=== PATIENT | female | born 1995 | race Caucasian/White ===

== ENCOUNTER 2018-10-31 00:07 | Emergency (ER) | payer BC ==
[2018-10-31] MEDS ORDERED: NS 0.9% 1000 ML** 1,000 ML IV ONE (00:18)
[2018-10-31] MEDS ORDERED: Metoclopramide IV* 5 MG/ML 2 ML VIAL IV SLOW PU ONE (00:18)
--- NOTE | 2018-10-31 00:22 | ED ---
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 The patient was found at a bar passed out. Symptoms aggravated by nothing. Symptoms alleviated by nothing. EMS reports vomiting [employer] INSPECTOR and low temp. - History Of Current Complaint Stated Complaint: "ETOH" PER EMS Time Seen by Provider: 10/31/18 00:09 Hx Obtained From: EMS Hx From Patient Unobtainable Due To: Other - LEVEL 5 CAVEAT DUE TO PATIENT BEING UNCONSCIOUS Onset/Duration of Drug/ETOH Abuse: Minutes - [employer] Ingestion History: Type/Name Of Drug - alcohol Overdose Characteristics: Oral Timing Of Abuse: Binge Use Aggravating Factor(s): Nothing Alleviating Factor(s): Nothing Associated Signs And Symptoms: Vomiting, Other: - low temp PMH/Surg Hx/FS Hx/Imm Hx Previously Healthy: No - LEVEL 5 CAVEAT DUE TO PATIENT BEING UNCONSCIOUS Infectious Disease History: Unable to Obtain/Confirm Infectious Disease History: Denies: Traveled Outside the [place] in Last 30 Days - Family History Known Family History: Positive: Unknown - LEVEL 5 CAVEAT DUE TO PATIENT BEING UNCONSCIOUS - Social History Alcohol Use: None - LEVEL 5 CAVEAT DUE TO PATIENT BEING UNCONSCIOUS Hx Substance Use: No - LEVEL 5 CAVEAT DUE TO PATIENT BEING UNCONSCIOUS Smoking Status (MU): Unknown if Ever Smoked - LEVEL 5 CAVEAT DUE TO PATIENT BEING UNCONSCIOUS Review of Systems Positive: Other - alcohol intoxication and low temp Positive: Vomiting Neurological: Other - LOC All Other Systems Reviewed And Are Negative: Yes Physical Exam - Summary Physical Exam Summary: VITAL SIGNS: Reviewed. GENERAL: Patient is a well-developed and nourished FEMALE who is lying comfortable in the stretcher. Patient is not in any acute respiratory distress. HEAD AND FACE: No signs of trauma. No ecchymosis, hematomas or skull depressions. No sinus tenderness. EYES: PERRLA, EOMI x 2, No injected conjunctiva, no nystagmus. EARS: Hearing grossly intact. Ear canals and tympanic membranes are within normal limits. MOUTH: Oropharynx within normal limits. NECK: Supple, trachea is midline, no adenopathy, no JVD, no carotid bruit, no c- spine tenderness, neck with full ROM. CHEST: Symmetric, no tenderness at palpation LUNGS: Clear to auscultation bilaterally. No wheezing or crackles. CVS: Regular rate and rhythm, S1 and S2 present, no murmurs or gallops appreciated. ABDOMEN: Soft, non-tender. No signs of distention. No rebound no guarding, and no masses palpated. Bowel sounds are normal. EXTREMITIES: FROM in all major joints, no edema, no cyanosis or clubbing. NEURO: No acute neurological deficits. Responsive to deep painful stimuli. SKIN: Dry and warm Triage Information Reviewed: Yes Vital Signs On Initial Exam: Initial Vitals Temp Pulse Resp BP Pulse Ox 97.1 F 62 16 99/75 99 10/31/18 00:07 10/31/18 00:07 10/31/18 00:07 10/31/18 00:07 10/31/18 00:07 Vital Signs Reviewed: Yes Completion Of Physical Exam Limited Due To: Level 5 - LEVEL 5 CAVEAT DUE TO PATIENT BEING UNCONSCIOUS Diagnostics - Vital Signs Vital Signs Temp Pulse Resp BP Pulse Ox 10/31/18 00:07 97.1 F 62 16 99/75 99 - Laboratory Lab Statement: Any lab studies that have been ordered have been reviewed, and results considered in the medical decision making process. Re-Evaluation - Re-Evaluation First Eval Re-Evaluation Time: 02:47 Change: Improved Comment: The patient is awake. Second Eval Re-Evaluation Time: 03:21 Course/Dx - Course Assessment/Plan: LEVEL 5 CAVEAT DUE TO PATIENT BEING UNCONSCIOUS. This patient is a 23 year old F brought in by ambulance to ED with a chief complaint of alcohol intoxication and LOC since [employer] INSPECTOR. In the ED course, the patient was given fluids and reglan. The patient is awake in the ED. She is alert and oriented x3 and has a steady gait. She will be picked up by her friend. The patient will be discharged with dx of alcohol intoxication. Patient understands and agrees with this plan. - Diagnoses Differential Diagnosis/HQI/PQRI: Positive: Other - alcohol intoxication Provider Diagnoses: Alcohol intoxication Discharge - Sign-Out/Discharge Documenting (check all that apply): Patient Departure - discharge Patient Received Moderate/Deep Sedation with Procedure: No - Discharge Plan Condition: Stable Disposition: HOME Patient Education Materials: Alcohol Intoxication (ED) Referrals: [facility] [Outside] - 3 Days Additional Instructions: PLEASE RETURN TO THE ED TO IMMEDIATELY FOR WORSENING OR CONCERNING SYMPTOMS. - Billing Disposition and Condition Condition: STABLE Disposition: Home - Attestation Statements Document Initiated by Scribe: Yes Documenting Scribe: Humza Lee Provider For Whom Scribe is Documenting (Include Credential): Blanquita Johnson MD Scribe Attestation: IHumza, scribed for Blanquita Johnson MD on 10/31/18 at 0622. Scribe Documentation Reviewed: Yes Provider Attestation: The documentation as recorded by the Humza watkins accurately reflects the service I personally performed and the decisions made by Taylor lima MD Status of Scribe Document: Viewed
[2018-10-31 03:46] VITALS: BP 108/55
== END 2018-10-31 03:40 | disposition home or self-care (01) ==
LOC: ED 00:07
DX: F10.129 Alcohol abuse with intoxication, unspecified (principal); R11.10 Vomiting, unspecified; R55 Syncope and collapse
CPT/HCPCS: 96361; 96374; 99284; J2765